=== PATIENT | female | born 2000 | race Caucasian/White ===

== ENCOUNTER → 2020-03-16 16:31 | Outpatient (CLI) | payer OTHER, MEDICAID, SELFPAY ==
[2020-03-18 20:38] LABS: AFP, Serum 15.4 ng/mL (.); Estriol, Free 0.57 ng/mL (.); Inhibin A, Dimeric 57.33 pg/mL (.); Inhibin A, MoM 0.31 (.); Maternal Ethnicity Caucasian (.); Maternal Weight 141 lbs (.); Number of Fetuses No (.); OSBR Risk 1 IN 10000 (.); Results Report (.); Test Results *Screen Negative* (.); hCG, Serum 21929 mIU/mL (.)
== END ==
PROVIDERS: Referring Provider Obstetrics & Gynecology; Visit Provider Obstetrics & Gynecology
DX: Z34.02 Encounter for supervision of normal first pregnancy, second trimester (principal); Z3A.20 20 weeks gestation of pregnancy
CPT/HCPCS: 36415; 82105; 82677; 84702; 86336

== ENCOUNTER → 2020-04-20 12:46 | Outpatient (CLI) | payer OTHER, MEDICAID, SELFPAY ==
--- NOTE | 2020-04-20 12:47 | DI.US.S_ITS ---
PROCEDURE: US OB >= 14 WEEKS FETUS INDICATIONS: 20 wk anatomy scan OUTSIDE/PRIOR DATING DATA: Last menstrual period (LMP): 11/30/19. LMP-based estimated date of delivery (MARCIA): 09/05/20. First dating scan (date and location): 04/20/20, this study. Estimated date of delivery (MARCIA) from first dating scan: 09/12/20. TECHNIQUE: Real-time scanning was performed of the fetus, with image documentation and biometric measurements. Endovaginal scanning: Not needed COMPARISON: None. FINDINGS: General: A single living intrauterine gestation is present. Presentation: Breech Placenta: Placental position is anterior, without previa. Amniotic fluid index: 11.8 cm, normal range is 5-24 cm. heart rate: 140 beats per minute. Maternal cervical canal: 4.0 cm long. Normal lower limit is 2.5 cm. biometrics: Biparietal diameter: 4.3 cm, 19 weeks 0 days Head circumference: 16.9 cm, 19 weeks 4 days Abdominal circumference: 14.4 cm, 19 weeks 5 days Femur length: 2.9 cm, 19 weeks 0 days Estimated gestational age from initial scan: not applicable. Composite gestational age from present scan: 19 weeks 2 days Estimated weight and percentile: 292 g, 10th percentile Measurement variability for biometric dating: +/- 7 days from 14 weeks to 15 weeks 6 days gestation, +/- 10 days from 16 weeks to 21 weeks 6 days gestation, +/- 2 weeks from 22 weeks to 27 weeks 6 days gestation, +/- 3 weeks for 28 weeks gestation or later. weight reference: 4500 g or EFW >90/95% is considered macrosomia or large for gestational age. EFW <10% is small for gestational age. EFW 5% or less is considered intra-uterine growth restriction. Anatomic survey: Neuro: Ventricles are non-dilated at less than 10 mm. Cisterna magna is normal at 3-11 mm. Cerebellum is normal in size and morphology. Nuchal skin fold: Normal at less than 6 mm between 14-21 weeks gestational age. Face: Nose and lips, facial profile are normal. Spine: No evidence for spina bifida. Heart: 4-chambered heart is present, with normal ventricular outflow tracts. Diaphragm: Diaphragm is intact. Stomach: Left-sided stomach is present. Kidneys: No hydronephrosis. Normal is less than 5 mm in 2nd trimester, less than 7 mm in 3rd trimester. Cord: 3-vessel cord has orthotopic insertion. Bladder: Normal in size. Extremities: All 4 extremities identified. * . IMPRESSION: 19 week 2 day gestational age, with delivery date projected to be centered on 09/12/20. No anomaly seen. Normal amniotic fluid volume. Breech presentation at this time, anterior placenta. Dictated by: Jaden Brush M.D. on 04/20/2020 at 16:35 Approved by: Jaden Brush M.D. on 04/20/2020 at 16:38
== END ==
PROVIDERS: Referring Provider Obstetrics & Gynecology; Visit Provider Obstetrics & Gynecology
DX: Z34.02 Encounter for supervision of normal first pregnancy, second trimester (principal); Z3A.19 19 weeks gestation of pregnancy
CPT/HCPCS: 76811

== ENCOUNTER → 2020-06-06 11:30 | Outpatient (CLI) | payer OTHER, MEDICAID, SELFPAY ==
[2020-06-06 13:42] LABS: Hematocrit 32.2 % (36-46); Hemoglobin 10.7 g/dL (12.0-16.0)
[2020-06-06 14:02] LABS: GTT (PREG) 1 Hour PP 50gm Dose 110 mg/dL (76-139)
== END ==
PROVIDERS: PCP Obstetrics & Gynecology; Referring Provider Obstetrics & Gynecology; Visit Provider Obstetrics & Gynecology
DX: Z34.02 Encounter for supervision of normal first pregnancy, second trimester (principal); Z3A.27 27 weeks gestation of pregnancy
CPT/HCPCS: 36415; 82950; 85014; 85018

== ENCOUNTER → 2020-08-02 15:08 | Outpatient (CLI) | payer OTHER, MEDICAID, SELFPAY ==
[2020-08-03 14:30] LABS: Strep Grp B PCR NEG for Grp B Strep
== END ==
PROVIDERS: PCP Obstetrics & Gynecology; Visit Provider Obstetrics & Gynecology
DX: Z34.03 Encounter for supervision of normal first pregnancy, third trimester (principal); Z3A.35 35 weeks gestation of pregnancy
CPT/HCPCS: 87653

== ENCOUNTER 2020-08-24 10:54 | Outpatient (CLI) | payer OTHER, MEDICAID, SELFPAY ==
--- NOTE | 2020-08-24 23:32 | P.TNLD_ITS ---
Visit Information Visit Information Date of evaluation: 08/24/20 Primary OB Provider: Pam Lopez On-call OB Provider: Sally Wilcox Reason for Evaluation: Yes rule out labor Comments/Additional reasons for admission: 20 YO G1P 0 @ 38wks2 days here for evaluation of plabor. Contractions started this afternoon and have slowly progressed in frequency and intensity. no painful and 8 minutes apart. +FM. No VB or LOF. Uncomplicated PN care w/ [facility]. Boyfriend is present and supportive. Vital Signs Vital Signs: BP 134/88, [id number], T97.7F Temporal PFSH Medical History Asthma (Acute) Depression (Acute) Family History Mother No problems noted. Father Unknown whether patient has any health problems Family estrangement Grandfather Diabetes mellitus Grandmother Breast cancer Depression Thyroid disease Grandfather Addisons disease Grandmother No problems noted. 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 needs: No Smoking Status: Never smoker second hand exposure: No alcohol intake: never substance use type: does not use Review of Systems Review of Systems ROS: Yes All systems reviewed with the patient and are negative except as otherwise documented Exam Vital Signs (past 8 hours): see above Evaluation Evaluation Baseline heart rate: 135 Variability: Moderate (11-25) monitor accelerations: Present monitor decelerations: Absent Contraction Frequency (minutes): 4 Uterine Contraction Intensity: Moderate Category of Tracing: Reactive Cervical dilation (cm): 2 Cervical effacement (%): 90 station: -1 Comments: contractions irregular at 2-6 minutes apart Diagnosis, Plan/Disposition Final Diagnosis (1) : Status: Acute Problem details: Early labor Plan/Disposition Plan: Offered 2 hour walk and return vs d/c to home and return once contractions are 2-4 minutes apart x 1 hour. Pt elected d/c to home. Labor precautions reviewed. Return for repeat labor eval/admission or follow-up w/ primary OB as previously scheduled. OB Disposition: home
== END 2020-08-25 00:05 | disposition home or self-care (01) ==
LOC: OB 08-25 11:22
PROVIDERS: PCP Obstetrics & Gynecology; Referring Provider Nurse Practitioner Obstetrics & Gynecology; Visit Provider Nurse Practitioner Obstetrics & Gynecology
DX: Z34.03 Encounter for supervision of normal first pregnancy, third trimester (principal); Z3A.38 38 weeks gestation of pregnancy
CPT/HCPCS: 59025; 59050; G0378; G0379

== ENCOUNTER 2020-08-25 15:18 | Observation (INO) | payer OTHER, MEDICAID, SELFPAY ==
[2020-08-25 16:24] LABS: Add Manual Diff / Slide Review NO; Basophils Absolute Auto 0 /uL (0-100); Basophils Percent Auto 0.1 % (0-2); Eosinophils Absolute Auto 100 /uL (0-450); Eosinophils Percent Auto 0.6 % (2-4); Hematocrit 30.8 % (36-46); Hemoglobin 10.1 g/dL (12.0-16.0); Lymphocytes Absolute Auto 1400 /uL (1100-4500); Lymphocytes Percent Auto 11.9 % (25-40); Mean Corpuscular HGB Conc 32.7 % (30-36); Mean Corpuscular Hemoglobin 26.9 PG (26-34); Mean Corpuscular Volume 82.5 fL (80-100); Monocytes Absolute Auto 800 /uL (0-900); Monocytes Percent Auto 6.3 % (3-14); Neutrophils Absolute Auto 9800 /uL (1500-7000); Neutrophils Percent Auto 81.1 % (50-75); Platelet Count 323 X10^3/uL (150-400); Red Blood Cell Count 3.73 X10^6/uL (4.0-5.2); Red Cell Distribution Width 14.3 % (11.6-14.8); White Blood Cell Count 12.1 X10^3/uL (4.5-11.0)
[2020-08-25 16:42] LABS: Aspartate Aminotransferase 24 IU/L (14-36); BUN Creatinine Ratio 22.4 (6-22); Blood Urea Nitrogen 11 mg/dL (7-17); Estimated Glomerular Filt Rate > 60.0 mL/min (>60); Uric Acid 5.4 mg/dL (2.5-6.2)
[2020-08-25 17:05] LABS: Creatinine Urine Random 59.3 mg/dL; Protein (Total) Urine Random 9 mg/dL (0-12); Protein Creatinine Ratio Urine 0.15 GRAM/24H
[2020-08-25] MEDS: MORPHINE 10 MG/ML INJ IM (18:00)
== END 2020-08-25 18:05 | disposition home or self-care (01) ==
PROVIDERS: Admitting Provider Obstetrics & Gynecology; PCP Obstetrics & Gynecology; Referring Provider Obstetrics & Gynecology; Visit Provider Obstetrics & Gynecology
DX: Z34.03 Encounter for supervision of normal first pregnancy, third trimester (principal); Z3A.38 38 weeks gestation of pregnancy
CPT/HCPCS: 59025; 59050; 82570; 84156; 84450; 84550; 85025; 96372; G0378; G0379; J2270

== ENCOUNTER 2020-08-26 20:05 | Observation (INO) | payer OTHER, MEDICAID, SELFPAY ==
[2020-08-26] MEDS: MORPHINE 10 MG/ML INJ 5 MG IM (23:20)
[2020-08-27] MEDS: MORPHINE 10 MG/ML INJ 5 MG IM (00:30)
--- NOTE | 2020-08-27 17:26 | P.TNLD_ITS ---
Visit Information Visit Information Date of evaluation: 08/26/20 Primary OB Provider: Pam Lopez On-call OB Provider: Arlene Gomez Reason for Evaluation: Yes rule out labor Comments/Additional reasons for admission: This patient presents for evaluation of labor with contractions q5-10 minutes. No other complaints obstetrical or otherwise. Vital Signs Vital Signs: 127/67, HR 89 PFSH Medical History Asthma (Acute) Depression (Acute) Family History Mother No problems noted. Father Unknown whether patient has any health problems Family estrangement Grandfather Diabetes mellitus Grandmother Breast cancer Depression Thyroid disease Grandfather Addisons disease Grandmother No problems noted. 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 needs: No Smoking Status: Never smoker second hand exposure: No alcohol intake: never substance use type: does not use Review of Systems Constitutional Constitutional: Reports system reviewed and no additional complaints, except as documented Evaluation Evaluation Baseline heart rate: 135 Variability: Average (6-10) monitor accelerations: Present monitor decelerations: Absent Uterine Contraction Intensity: Moderate Category of Tracing: Reactive Cervical dilation (cm): 3 Cervical effacement (%): 90 station: -2 Diagnosis, Plan/Disposition Plan/Disposition Plan: Home after morphine with labor precautions. OB Disposition: home
--- NOTE | 2020-08-29 17:05 | PM.OBDS.1 ---
Discharge Providers Provider Date of admission: 08/26/20 20:05 Discharge Date: 08/29/20 Primary care physician: Pam Lopez MD Discharge provider: Pam Lopez MD Summary Hospital Course Date Patient Seen: 08/29/20 Time Patient Seen: 12:00 Procedures: Spontaneous vaginal delivery Second-degree laceration repair Spontaneous rupture of membranes Epidural analgesia Hospital Course: Patient is a 20-year-old 1 para 1 who presented at 38 and 6 7th weeks gestation in active labor. She received an epidural for pain management. She had spontaneous rupture of membranes with some blood tinged fluid. She had a spontaneous vaginal delivery with a second-degree laceration with repair. Her course was unremarkable and she is discharged home on post day # 1 Peripartum Data Infant Delivery Method: Natural Vaginal Laceration Description: Perineal - 2nd Degree Episiotomy description: None Procedures: Spontaneous vaginal delivery Epidural analgesia Second-degree laceration repair complications: none 1: Gender: Male Disposition of : home Status at Discharge Cognitive/behavioral status at discharge: oriented Functional status at discharge: independent ambulation Overall status at discharge: patient is progressing back to baseline Time Spent with Patient Time attestation: Total time spent providing and/or coordinating discharge services: Time spent: Less than 30 minutes Exam Vital Signs (past 8 hours): Generally: Patient is sitting up in bed, nursing infant, no acute distress Fundus: Firm at U -1 Extremities: Negative Homans, trace edema Discharge Plan Discharge Plan Patient Disposition: Home Discharge orders & Medications Prescriptions: No Action prenat.vits,say,[id number] Tablet 1 tab PO DAILY RF: 0 acetaminophen [Tylenol] 325 mg capsule 325 mg PO ONCE PRN (Reason: Pain (Scale Score 1-3)) RF: 0 docusate sodium 100 mg PO DAILY RF: 0 Follow up/Referrals: Pam Lopez MD [Primary Care Provider] - Discharge Data Primary Care Provider: Pam Lopez Attending Provider: Arlene Gomez
== END 2020-08-27 00:40 | disposition home or self-care (01) ==
LOC: LABOR 08-29 10:26
PROVIDERS: Admitting Provider Obstetrics & Gynecology; PCP Obstetrics & Gynecology; Referring Provider Obstetrics & Gynecology; Visit Provider Obstetrics & Gynecology
DX: Z34.03 Encounter for supervision of normal first pregnancy, third trimester (principal); Z3A.38 38 weeks gestation of pregnancy
CPT/HCPCS: 59025; 96372; G0378; G0379; J2270

== ENCOUNTER 2020-08-27 19:03 | Inpatient (IN) | payer OTHER, MEDICAID, SELFPAY ==
[2020-08-27 20:02] LABS: COVID19 -Nasal RAPID Negative (Negative)
[2020-08-27 20:19] LABS: Add Manual Diff / Slide Review NO; Basophils Absolute Auto 100 /uL (0-100); Basophils Percent Auto 0.9 % (0-2); Eosinophils Absolute Auto 0 /uL (0-450); Eosinophils Percent Auto 0.3 % (2-4); Hematocrit 32.7 % (36-46); Lymphocytes Absolute Auto 1600 /uL (1100-4500); Lymphocytes Percent Auto 11.9 % (25-40); Mean Corpuscular HGB Conc 33.6 % (30-36); Mean Corpuscular Hemoglobin 27.4 PG (26-34); Mean Corpuscular Volume 81.6 fL (80-100); Monocytes Absolute Auto 700 /uL (0-900); Monocytes Percent Auto 5.3 % (3-14); Neutrophils Absolute Auto 11000 /uL (1500-7000); Neutrophils Percent Auto 81.6 % (50-75); Platelet Count 370 X10^3/uL (150-400); Red Blood Cell Count 4.01 X10^6/uL (4.0-5.2); Red Cell Distribution Width 14.9 % (11.6-14.8); White Blood Cell Count 13.5 X10^3/uL (4.5-11.0)
[2020-08-27] MEDS: LACTATED RINGERS 1,000 ML 100 ML IV (20:19)
[2020-08-27] MEDS: fentaNYL 100 MCG/2 ML INJ IV (20:21)
[2020-08-27 23:12] VITALS: BP 110/74
[2020-08-28] MEDS: LACTATED RINGERS 1,000 ML 100 ML IV ×2 (00:30→04:43)
[2020-08-28] MEDS: FENT 2MCG/ML BUPIV 0.125% EPI 200 MCG/100 ML PLAST..BAG 10 MCG EPIDURAL (02:13)
--- NOTE | 2020-08-28 03:30 | P.HPOB_ITS ---
OB HPI Date/Time Date of admission: 08/27/20 Date Patient Seen: 08/28/20 Time Patient Seen: 03:00 History of Present Condition Chief complaint: Obs : 1 Para: 0 Estimated Date of Delivery: 09/05/20 Narrative: Neeru Powell is a 20 yo admitted at 38 weeks 5 days in active labor. Patient reports increasing contractions, no loss of fluid, scant bloody show, good movement, no other complaints. Patient has had an otherwise un complicated , though she did transfer her care from the [facility] at the beginning of the 2nd trimester. Patient has had an otherwise uncomplicated , though several days of prodromal labor. She has a history of asthma but no other contributory medical, surgical, or family history. History of Present care: good care, initiated at week # (11) and number of visits (45) Dating criteria: based on 1st trimester US only Ultrasounds: normal 1st trimester US and normal mid trimester US Obstetrical complications: none Medical complications: none Preadmission Labs Blood type: O (+) positive -: Antibody screen: negative, HBsAG: negative, HIV: negative and RPR/VDLR: negative -: Chlamydia screen: not detected and Gonorrhea screen: not detected -: Rubella: immune and Varicella: immune PAP: Normal Quad screen: Normal Urine: normal 1 hr GTT: 110 Evaluation Evaluation Baseline heart rate: 140 Variability: Moderate (11-25) monitor accelerations: Present monitor decelerations: Variable (With pushing) Contraction Frequency (minutes): 3 Cervical dilation (cm): 10 Cervical effacement (%): 100 station: +2 Laboratory results: Laboratory Tests 08/27/20 08/27/20 08/27/20 19:30 20:05 20:05 WBC 13.5 H RBC 4.01 Hgb 11.0 L Hct 32.7 L MCV 81.6 MCH 27.4 MCHC 33.6 RDW 14.9 H Plt Count 370 Neut % (Auto) 81.6 H Lymph % (Auto) 11.9 L [place] % (Auto) 5.3 Eos % (Auto) 0.3 L Baso % (Auto) 0.9 Neut # (Auto) 05629 H Lymph # (Auto) 1600 [place] # (Auto) 700 Eos # (Auto) 0 Baso # (Auto) 100 COVID-19 PCR Negative Blood Type O Positive Antibody Screen Negative [facility] Medical History Asthma (Acute) Depression (Acute) Family History Mother No problems noted. Father Unknown whether patient has any health problems Family estrangement Grandfather Diabetes mellitus Grandmother Breast cancer Depression Thyroid disease Grandfather Addisons disease Grandmother No problems noted. 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: No Smoking Status: Never smoker second hand exposure: No alcohol intake: never substance use type: does not use Meds Home Medications and Allergies Home Medications Medication Instructions Recorded Confirmed Type acetaminophen 325 mg capsule 325 mg PO ONCE PRN 03/15/20 08/27/20 History prenat.vits,say,[id number] 1 tab PO DAILY 03/15/20 08/27/20 History docusate sodium 100 mg PO DAILY 08/27/20 08/27/20 History Allergies Allergy/AdvReac Type Severity Reaction Status Date / Time cat dander Allergy Mild Sneezing Verified 08/27/20 23:19 and itching Review of Systems Constitutional Constitutional: Reports system reviewed and no additional complaints, except as documented Cardiovascular Cardiovascular: Reports system reviewed and no additional complaints, except as documented Respiratory Respiratory: Reports system reviewed and no additional complaints, except as documented Gastrointestinal Gastrointestinal: Reports system reviewed and no additional complaints, except as documented Genitourinary Genitourinary: Reports as per HPI Neurologic Neurologic: Reports system reviewed and no additional complaints, except as documented Exam Vital Signs (past 8 hours): - 08/27/20 23:12 Blood Pressure 110/74 Const General: cooperative, healthy appearing and comfortable Other: Just received a 2nd epidural External Female Exam: normal external appearance Objective Labs Result Diagrams: 08/27/20 20:05 Labs: Laboratory Results - last 24 hr 08/27/20 08/27/20 08/27/20 19:30 20:05 20:05 WBC 13.5 H RBC 4.01 Hgb 11.0 L Hct 32.7 L MCV 81.6 MCH 27.4 MCHC 33.6 RDW 14.9 H Plt Count 370 Neut % (Auto) 81.6 H Lymph % (Auto) 11.9 L [place] % (Auto) 5.3 Eos % (Auto) 0.3 L Baso % (Auto) 0.9 Neut # (Auto) 91198 H Lymph # (Auto) 1600 [place] # (Auto) 700 Eos # (Auto) 0 Baso # (Auto) 100 COVID-19 PCR Negative Blood Type O Positive Antibody Screen Negative Assessment and Plan Assessment and Plan Assessment and Plan narrative: This patient presents in active labor, and is initiating pushing as I arrived. 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 Anticipate vaginal delivery. SROM shortly prior to fully dilated.
[2020-08-28] MEDS: METHYLERGONOVINE 0.2 MG/ML VIAL IM (04:41)
[2020-08-28] MEDS: OXYTOCIN PREMIX 30 UNIT/500 ML PLAST..BAG 334 UNIT IV (04:42)
[2020-08-28] MEDS: miSOPROStoL 200 MCG TABLET 800 MCG PR (04:45)
--- NOTE | 2020-08-28 05:12 | PM.OBPRVD ---
Labor & Delivery Delivery date: 08/28/20 Intrapartal events: Prolonged Latent Phase, Abruptio Placenta, Acceleration and Deceleration Cervical ripening method: none Induction method: none Delivery monitor: external FHT and external uterine Route of delivery: L&D Laceration Description: Perineal - 2nd Degree Estimated blood loss (mL): 400 Anesthesia type: Epidural Narrative: This patient presented in active labor, and progressed spontaneously to fully dilated. She was noted to have bloody amniotic fluid, though status was reassuring. After 1 hour 2nd stage, she was delivered of a healthy baby boy. A body cord was reduced after delivery, and the shoulders delivered with ease. The placenta delivered spontaneously shortly thereafter, and was noted to have signs of a small partial abruption. A second-degree perineal laceration was repaired with 3-0 Vicryl in the usual fashion. The patient continued to have persistent lower uterine segment at knee, and was administered 1 dose of Methergine and 1000 mcg of rectal Cytotec along with 30 milliunits of Pitocin per protocol. Uterine tone improved, and there were no other intrapartum or immediate complications. Apgars were 8 and 9, weight 3135g. Baby Julian: gender: Male Presentation: vertex position: Right Occiput Anterior (Direct OA) Placenta delivery description: Spontaneous cord vessel description: Around Body x1 score (1 min): 8 score (5 min): 9 Plan for aftercare: Routine care
[2020-08-28] MEDS: ACETAMINOPHEN 325 MG TABLET 650 MG PO (08:03)
[2020-08-28] MEDS: IBUPROFEN 600 MG TABLET PO ×3 (08:04→23:23)
[2020-08-28] MEDS: DOCUSATE 100 MG CAPSULE PO (09:09)
[2020-08-28] MEDS: PRENATAL VIT,CALC/IRON/FOLIC 1 TABLET 1 TAB PO (09:10)
[2020-08-29] MEDS: IBUPROFEN 600 MG TABLET PO ×2 (06:29→12:41)
[2020-08-29] MEDS: LANOLIN OINT 7 GM 1 APPLIC TOP (11:22)
[2020-08-29 12:46] VITALS: BP 121/80; PULSE 79; RESP 16; TEMP 36.9
--- NOTE | 2020-08-29 17:05 | P.DS_ITS ---
Discharge Providers Provider Date of admission: 08/26/20 20:05 Discharge Date: 08/29/20 Primary care physician: Pam Lopez MD Discharge provider: Pam Lopez MD Summary Hospital Course Date Patient Seen: 08/29/20 Time Patient Seen: 12:00 Procedures: Spontaneous vaginal delivery Second-degree laceration repair Spontaneous rupture of membranes Epidural analgesia Hospital Course: Patient is a 20-year-old 1 para 1 who presented at 38 and 6 7th weeks gestation in active labor. She received an epidural for pain management. She had spontaneous rupture of membranes with some blood tinged fluid. She had a spontaneous vaginal delivery with a second-degree laceration with repair. Her course was unremarkable and she is discharged home on post day # 1 Peripartum Data Infant Delivery Method: Natural Vaginal Laceration Description: Perineal - 2nd Degree Episiotomy description: None Procedures: Spontaneous vaginal delivery Epidural analgesia Second-degree laceration repair complications: none 1: Gender: Male Disposition of : home Status at Discharge Cognitive/behavioral status at discharge: oriented Functional status at discharge: independent ambulation Overall status at discharge: patient is progressing back to baseline Time Spent with Patient Time attestation: Total time spent providing and/or coordinating discharge services: Time spent: Less than 30 minutes Exam Vital Signs (past 8 hours): Generally: Patient is sitting up in bed, nursing infant, no acute distress Fundus: Firm at U -1 Extremities: Negative Homans, trace edema Discharge Plan Discharge Plan Patient Disposition: Home Discharge orders & Medications Prescriptions: No Action prenat.vits,say,[id number] Tablet 1 tab PO DAILY RF: 0 acetaminophen [Tylenol] 325 mg capsule 325 mg PO ONCE PRN (Reason: Pain (Scale Score 1-3)) RF: 0 docusate sodium 100 mg PO DAILY RF: 0 Follow up/Referrals: Pam Lopez MD [Primary Care Provider] - Discharge Data Primary Care Provider: Pam Lopez Attending Provider: Arlene Gomez
== END 2020-08-29 14:40 | disposition home or self-care (01) | DRG 560 ==
PROVIDERS: Admitting Provider Obstetrics & Gynecology; PCP Obstetrics & Gynecology; Referring Provider Obstetrics & Gynecology; Visit Provider Obstetrics & Gynecology
DX: O70.1 Second degree perineal laceration during delivery (principal); O60.14X0 Preterm labor third trimester with preterm delivery third trimester, not applicable or unspecified; O45.93 Premature separation of placenta, unspecified, third trimester; Z3A.38 38 weeks gestation of pregnancy; Z37.0 Single live birth; J45.909 Unspecified asthma, uncomplicated; Z11.59 Encounter for screening for other viral diseases
CPT/HCPCS: 01967; 36415; 59025; 59050; 59409; 85025; 86850; 86900; 86901; 87635; 96372; G0378; G0379; J2210; J2270; J2590; J3010; S0191